=== PATIENT | female | born 1990 | race American Indian/Alaskan Native ===

== ENCOUNTER 2017-01-27 23:43 | Observation (INO) | payer OTHER ==
[2017-01-27 23:53] VITALS: BMI 21.7
[2017-01-28] MEDS ORDERED: Sodium Chloride 0.9% 1,000 ML IV STA ×2 (00:19→04:32)
--- NOTE | 2017-01-28 00:20 | ED PDOC ---
"Arrival/HPI - General Chief Complaint: Abdominal Pain Time Seen by Provider: 01/27/17 23:59 Historian: Patient - History of Present Illness Narrative History of Present Illness (Text): 01/28/17 00:11 Latasha Monet is a 26 year old female, with no significant past medical history, presents to the emergency department complaining of abdominal pain with increased vaginal bleeding for past 2 days. Patient states that her menstrual cycle was supposed to end 2 days ago, but states she suddenly started bleeding heavily. Reports quality of pain as pressure sensation across lower abdomen. States she passed large clots and developed lightheadedness and dizziness yesterday. Today, prior to arrival, patient felt weak and passed out in the shower. Also reports of a subjective fever, chills and lower abdominal pain while urinating. Denies any nausea, vomiting, diarrhea, flank pain, back pain, or any other complaints at this time. Time/Duration: Other (2 days ) Symptom Onset: Gradual Symptom Course: Unchanged Severity Level: Mild Activities at Onset: Light Past Medical History - Cardiac Hx Cardiac Disorders: No - Pulmonary Hx Respiratory Disorders: No - Neurological Hx Neurological Disorder: No - HEENT Hx HEENT Disorder: No - Renal Hx Renal Disorder: No - Endocrine/Metabolic Hx Endocrine Disorders: No - Hematological/Oncological Hx Blood Disorders: No - Integumentary Hx Dermatological Disorder: No - Musculoskeletal/Rheumatological Hx Musculoskeletal Disorders: No - Gastrointestinal Hx Gastrointestinal Disorders: No - Genitourinary/Gynecological Hx Genitourinary Disorders: No - Psychiatric Hx Psychophysiologic Disorder: No Hx Substance Use: No - Anesthesia Hx Anesthesia: No Hx Anesthesia Reactions: No Family/Social History Family/Social History: Other (nc) Smoking Status: Current Some Days Smoker Hx Alcohol Use: Yes Frequency of alcohol use: Socially Hx Substance Use: No Allergies/Home Meds Allergies/Adverse Reactions: Allergies No Known Allergies Allergy (Verified 01/28/17 15:22) Home Medications: Home Meds Medication Instructions Recorded Confirmed Ferrous Sulfate [Feosol] 325 mg PO DAILY 01/28/17 01/28/17 Review of Systems - Physician Review All systems were reviewed & negative as marked: Yes - Review of Systems Constitutional: Fevers Respiratory: Normal. absent: SOB, Cough Cardiovascular: Normal. absent: Chest Pain Gastrointestinal: Abdominal Pain. absent: Diarrhea, Nausea, Vomiting Genitourinary Female: Vaginal Bleeding. absent: Vaginal Discharge Neurological: Normal. absent: Headache, Dizziness Psychiatric: Normal Physical Exam Vital Signs Reviewed: Yes Vital Signs Temp Pulse Resp BP Pulse Ox 01/28/17 08:16 88 16 100/72 98 01/28/17 07:54 88 16 99/64 L 100 01/28/17 04:43 85 18 83/51 L 97 01/28/17 02:20 99.3 F 95 H 16 98 01/28/17 00:27 100.1 F H 97 H 17 102/61 100 Temperature: Afebrile Blood Pressure: Normal Pulse: Tachycardic Respiratory Rate: Normal Appearance: Positive for: Well-Appearing, Non-Toxic, Comfortable Pain Distress: None Mental Status: Positive for: Alert and Oriented X 3 - Systems Exam Head: Present: Atraumatic, Normocephalic Pupils: Present: PERRL Conjunctiva: Present: Normal Respiratory/Chest: Present: Clear to Auscultation, Good Air Exchange. No: Respiratory Distress, Accessory Muscle Use Cardiovascular: Present: Regular Rate and Rhythm, Normal S1, S2. No: Murmurs Abdomen: Present: Normal Bowel Sounds. No: Tenderness, Distention, Peritoneal Signs Genitourinary/Pelvic Exam: Present: Vaginal Bleeding, Other (minimal amount of blood in the vaginal vault which was easily cleaned by a 2X2 gauze. Mover Helper HELEN Mederos ). No: Vaginal Discharge Neurological: Present: GCS=15, CN II-XII Intact, Speech Normal Skin: Present: Warm, Dry, Normal Color. No: Rashes Psychiatric: Present: Alert, Oriented x 3, Normal Insight, Normal Concentration Medical Decision Making ED Course and Treatment: Progress Notes: 01/28/17 05:06 Transvaginal US reviewed: IMPRESSION: Blood products within the endometrial canal. Uterine fibroid. Complex free fluid right lower quadrant. 01/28/17 06:24 EXAM: CT Abdomen and Pelvis With Intravenous Contrast CLINICAL HISTORY: 26 years old, female; Pain; Abdominal pain; Generalized TECHNIQUE: Axial computed tomography images of the abdomen and pelvis with intravenous contrast. This CT exam was performed using one or more of the following dose reduction techniques : automated exposure control, adjustment of the mA and/or kV according to patient size, and/ or use of iterative reconstruction technique. Coronal and sagittal reformatted images were created and reviewed. CONTRAST: 96 mL of OMNI 350 administered intravenously. EXAM DATE/TIME: 01/28/2017 4:46 AM COMPARISON: US - TRANSVAGINAL 01/28/2017 3:51:19 AM FINDINGS: The liver is normal. The spleen is normal. The pancreas is normal. No gallstones. No hydronephrosis or perinephric stranding. LATASHA MONET | Preliminary Radiology Report PLASTIC SEWER (QA) DISCREPANCY? If there is a discrepancy between the preliminary and final interpretation, please notify [facility] via [email or web address] If you do not have access to our QA portal, call our QA team at [phone] CONFIDENTIALITY STATEMENT This report is intended only for the use of the referring physician, and only in accordance with law, If you received this in error, call [phone] Page 2 of 2 Moderate amount of stool within the rectum. A normal appendix is identified coronal images 31 through 41. There is a small amount of fluid along the inferior hepatic edge and inferior splenic edge. There is fluid density in the anterior pelvis bilaterally, greater on the right , images 127-137. Some of the fluid on the right appears to be contained within tubular structures which likely represents fluidfilled bowel as I believe I can connect it to bowel in the pelvis more superiorly. The lack of oral contrast prevents opacification of the lumen/ definitive identification of bowel. It would be an unusual configuration for abscess collection. Tubo-ovarian abscess could have a similar appearance however there is no stranding in the surrounding fat to suggest active inflammatory process. There is a very large heterogeneous uterine fibroid measuring approximately 8.6 x 9.6 cm in axial dimensions measuring approximately 7.5 cm in craniocaudal dimensions. The fibroid occupies essentially the entire uterine fundus extending inferiorly to abut the endometrial cavity. Fluid is present in the endometrial cavity. IMPRESSION: Very large uterine fibroid corresponding to that seen on ultrasound. Free fluid in the abdomen and pelvis as discussed above of uncertain etiology. PID would be included in the differential diagnosis. Clinical correlation recommended. Normal appendix identified. - Lab Interpretations Lab Results: 01/28/17 00:54 01/28/17 00:54 Lab Results 01/28/17 00:54: WBC 8.9, RBC 3.96, Hgb 11.2 L, Hct 34.3 L, MCV 86.6, MCH 28.3, MCHC 32.7, RDW 13.7, Plt Count 281, MPV 9.5, Gran % 84.3 H, Lymph % (Auto) 10.9 L, Barrow % (Auto) 4.5, Eos % (Auto) 0.2 L, Baso % (Auto) 0.1, Gran # 7.52 H, Lymph # 1.0 L, Barrow # 0.4, Eos # 0.0, Baso # 0.01, Sodium 135, Potassium 3.7, Chloride 101, Carbon Dioxide 27, Anion Gap 11, BUN 7, Creatinine 0.7, Est GFR ( Amer) > 60, Est GFR (Non-Af Amer) > 60, Random Glucose 100, Calcium 8.7 , Total Bilirubin 0.5, AST 33, ALT 33, Alkaline Phosphatase 54, Total Protein 7.1, Albumin 3.6, Globulin 3.5, Albumin/Globulin Ratio 1.0 L, Beta HCG, Quant < 2.39 01/28/17 00:15: Urine Color Yellow, Urine Appearance Slight-cloudy, Urine pH 7.5 , Ur Specific Chester 1.020, Urine Protein 30 H, Urine Glucose (UA) Negative, Urine Ketones Negative, Urine Blood Moderate H, Urine Nitrate Negative, Urine Bilirubin Negative, Urine Urobilinogen 0.2, Ur Leukocyte Esterase Negative, Urine RBC 2 - 5, Urine WBC 0 - 2, Ur Epithelial Cells 0 - 2, Urine Bacteria Rare , Urine HCG, Qual Negative I have reviewed the lab results: Yes - RAD Interpretation Narrative RAD Interpretations (Text): EXAM: US Pelvis, Transvaginal FINDINGS: The patient has a reported negative test. The uterus measures 14 x 9 x 9 cm. There is a 7cm fibroid in the lower uterine segment. The endometrium is heterogeneous and thickened measuring 27 mm. The thickened heterogeneous endometrium appears avascular suggesting it represents blood products. Both ovaries measure approximately 4 x 2 x 4 cm. The right ovary is normal. The left ovary is normal. Ovarian follicles are noted. Color flow and doppler vascular waveforms were demonstrated to both ovaries. There is free fluid in the right lower quadrant containing internal echoes suggesting it may represent blood or pus. No walled off collection identified. The appendix is not identified. IMPRESSION: Blood products within the endometrial canal. Uterine fibroid. Complex free fluid right lower quadrant. Radiology Orders: 01/28/17 02:02 TRANSVAGINAL [US] Stat 01/28/17 02:03 PELVIS ULTRASOUND [US] Routine 01/28/17 04:46 ABD & PELVIS IV CONTRAST ONLY [CT] Stat Line Walker: Radiologist - Medication Orders Current Medication Orders: Discontinued Medications Ferrous Sulfate (Feosol) 324 mg PO DAILY KALEY Last Admin: 01/29/17 09:09 Dose: 324 MG Sodium Chloride (Sodium Chloride 0.9%) 1,000 mls @ 999 mls/hr IV .Q1H1M STA Stop: 01/28/17 01:19 Last Admin: 01/28/17 00:57 Dose: 999 MLS/HR eMAR Start Stop Document 01/28/17 00:57 [email or web address] (Rec: 01/28/17 00:57 [email or web address] [id number]) Intravenous Solution Start Date 01/28/17 Start Time 00:57 End Date 01/28/17 Sodium Chloride (Sodium Chloride 0.9%) 1,000 mls @ 999 mls/hr IV .Q1H1M STA Stop: 01/28/17 05:32 Last Admin: 01/28/17 04:43 Dose: 999 MLS/HR eMAR Start Stop Document 01/28/17 04:43 MR (Rec: 01/28/17 04:44 MR [id number]) Intravenous Solution Start Date 01/28/17 Start Time 04:44 End Date 01/28/17 End time 05:44 Total Infusion Time 60 Ceftriaxone Sodium (Rocephin 1 Gram Ivpb) 100 mls @ 200 mls/hr IVPB STAT STA PRN Reason: Protocol Stop: 01/28/17 06:53 Last Admin: 01/28/17 06:49 Dose: 200 MLS/HR eMAR Start Stop Document 01/28/17 06:49 MR (Rec: 01/28/17 06:49 MR [id number]) Intravenous Solution Start Date 01/28/17 Start Time 06:49 End Date 01/28/17 End time 07:19 Total Infusion Time 30 Doxycycline Hyclate 100 mg/ (Sodium Chloride) 100 mls @ 100 mls/hr IVPB STAT STA PRN Reason: Protocol Stop: 01/28/17 07:27 Last Admin: 01/28/17 07:45 Dose: 100 MLS/HR eMAR Start Stop Document 01/28/17 07:45 HI (Rec: 01/28/17 07:47 HI [id number]) Intravenous Solution Start Date 01/28/17 Start Time 07:45 Metronidazole (Flagyl) 100 mls @ 100 mls/hr IVPB STAT STA PRN Reason: Protocol Stop: 01/28/17 07:27 Last Admin: 01/28/17 09:56 Dose: 100 MLS/HR eMAR Start Stop Document 01/28/17 09:56 JIGAR (Rec: 01/28/17 09:56 JIGAR [id number]) Intravenous Solution Start Date 01/28/17 Start Time 09:56 End Date 01/28/17 End time 10:56 Total Infusion Time 60 Iohexol (Omnipaque 350 100 Ml) Confirm Administered Dose 350 mg .ROUTE .STK-MED ONE Stop: 01/28/17 04:51 Ketorolac Tromethamine (Toradol) 10 mg IVP STAT STA Stop: 01/28/17 00:20 Last Admin: 01/28/17 01:06 Dose: 10 MG IVP Administration Document 01/28/17 01:06 [email or web address] (Rec: 01/28/17 01:[id number]) Charges for Administration # of IVP Administrations 1 Ketorolac Tromethamine (Toradol) 15 mg IM Q6 PRN PRN Reason: Pain, severe (8-10) Stop: 02/02/17 16:23 Morphine Sulfate (Morphine) 2 mg IVP STAT STA Stop: 01/28/17 02:05 Last Admin: 01/28/17 02:19 Dose: 2 MG MAR Pain Assessment Document 01/28/17 02:19 [email or web address] (Rec: 01/28/17 02:20 [email or web address] Pain Reassessment Is this a pain reassessment? No Sleep Is patient sleeping during reassessment? No Presence of Pain Presence of Pain Yes Pain Scale Used Pain Scale Used Numeric Location Upper or Lower Lower Pain Location Body Site Abdomen Description Description Constant Intensity of Pain at present 7 Pain Behavior Facial Grimacing Aggravating Factors Changing Position Alleviating Factors/Management Position Change Techniques Alleviating Factors Medication IVP Administration Document 01/28/17 02:19 [email or web address] (Rec: 01/28/17 02:[id number]) Charges for Administration # of IVP Administrations 1 Pantoprazole Sodium (Protonix Ec Tab) 40 mg PO DAILY KALEY Last Admin: 01/29/17 09:09 Dose: 40 MG Pneumococcal Polyvalent Vaccine (Pneumovax 23 Vaccine) 0.5 ml IM .ONCE ONE Stop: 01/28/17 18:39 - Scribe Statement The provider has reviewed the documentation as recorded by the Dio Christiansen Provider Attestation: All medical record entries made by the Dio were at my direction and personally dictated by me. I have reviewed the chart and agree that the record accurately reflects my personal performance of the history, physical exam, medical decision making, and the department course for this patient. I have also personally directed, reviewed, and agree with the discharge instructions and disposition. Disposition/Present on Arrival - Present on Arrival Any Indicators Present on Arrival: No History of DVT/PE: No History of Uncontrolled Diabetes: No Urinary Catheter: No History of Decub. Ulcer: No History Surgical Site Infection Following: None - Disposition Have Diagnosis and Disposition been Completed?: Yes Diagnosis: Syncope, Abnormal vaginal bleeding, Fever, Abdominal pain Disposition: HOSPITALIZED Disposition Time: 07:00 Condition: STABLE"
[2017-01-28 00:35] LABS: PH,URINE 7.5 (4.7-8.0); URINE BILIRUBIN NEGATIVE (NEGATIVE); URINE BLOOD MODERATE (NEGATIVE); URINE GLUCOSE (UA) NEGATIVE (NEGATIVE); URINE KETONE NEGATIVE (NEGATIVE); URINE LEUKOCYTE ESTERASE NEGATIVE Leu/uL (NEGATIVE); URINE PROTEIN 30 mg/dL (<30 mg/dL); URINE UROBILINOGEN 0.2 E.U./dL (<1 E.U./dL)
[2017-01-28 00:39] LABS: URINE APPEARANCE SLIGHT-CLOUDY (CLEAR); URINE COLOR YELLOW (YELLOW)
[2017-01-28 00:56] LABS: URINE BACTERIA RARE (NEG); URINE EPITHELIAL CELLS 0 - 2 /hpf (0-5); URINE WBC 0 - 2 /hpf (0-6)
[2017-01-28 01:02] LABS: ADD MANUAL DIFF? NO
[2017-01-28 01:04] LABS: BASO # 0.01 K/mm3 (0.0-2.0); BASO % 0.1 % (0.0-3.0); EOS % 0.2 % (1.5-5.0); GRAN # 7.52 (1.4-6.5); GRAN % 84.3 % (50.0-68.0); HEMATOCRIT 34.3 % (36.0-48.0); LYMPH % 10.9 % (22.0-35.0); MEAN CELL VOLUME 86.6 fL (80.0-105.0); MEAN CORPUSCULAR HEMOGLOBIN 28.3 pg (25.0-35.0); MEAN CORPUSCULAR HGB CONC 32.7 g/dl (31.0-37.0); MEAN PLATELET VOLUME 9.5 fl (7.0-11.0); MONO # 0.4 (0.1-0.6); MONO % 4.5 % (1.0-6.0); PLATELET COUNT 281 10^3/uL (120.0-450.0); RED CELL DISTRIBUTION WIDTH 13.7 % (11.5-14.5); WHITE BLOOD COUNT 8.9 10^3/ul (4.5-11.0)
[2017-01-28 01:37] LABS: ALKALINE PHOSPHATASE 54 U/L (38-133); ALT/SGPT 33 U/L (7-56); AST/SGOT 33 U/L (15-39); BILIRUBIN,TOTAL 0.5 mg/dL (0.2-1.3); BLOOD UREA NITROGEN 7 mg/dL (7-21); CALCIUM 8.7 mg/dL (8.4-10.5); CARBON DIOXIDE 27 mmol/L (21-33); CHLORIDE 101 mmol/L (98-107); GFR AFRICAN-AMERICAN > 60; GLUCOSE,RANDOM 100 mg/dL (70-110); POTASSIUM 3.7 mmol/L (3.6-5.0); SODIUM 135 mmol/L (132-148); TOTAL PROTEIN 7.1 g/dL (5.8-8.3)
[2017-01-28] MEDS ORDERED: Morphine 2 mg/ml ISec IVP STA (02:04)
--- NOTE | 2017-01-28 04:41 | US ---
EXAM: US Pelvis, Transvaginal CLINICAL HISTORY: 26 years old, female; Pain; Pelvic pain; Patient HX: Pelvic pain/fever/heavy bleeding with clots. Lmp 1 week ago; Additional info: Abd pain fever R/O toa TECHNIQUE: Real-time transvaginal pelvic ultrasound (complete) with image documentation. Transvaginal imaging was used for better evaluation of the endometrium and adnexa. EXAM DATE/TIME: 01/28/2017 2:02 AM COMPARISON: No relevant prior studies available. FINDINGS: The patient has a reported negative test. The uterus measures 14 x 9 x 9 cm. There is a 7cm fibroid in the lower uterine segment. The endometrium is heterogeneous and thickened measuring 27 mm. The thickened heterogeneous endometrium appears avascular suggesting it represents blood products. Both ovaries measure approximately 4 x 2 x 4 cm. The right ovary is normal. The left ovary is normal. Ovarian follicles are noted. Color flow and doppler vascular waveforms were demonstrated to both ovaries. There is free fluid in the right lower quadrant containing internal echoes suggesting it may represent blood or pus. No walled off collection identified. The appendix is not identified. IMPRESSION: Blood products within the endometrial canal. Uterine fibroid. Complex free fluid right lower quadrant.
--- NOTE | 2017-01-28 04:43 | US ---
EXAM: US Pelvis, Transvaginal CLINICAL HISTORY: 26 years old, female; Pain; Pelvic pain; Patient HX: Heavy bleeding with clots lmp 1 week ago; Additional info: Appendix only TECHNIQUE: Real-time transvaginal pelvic ultrasound (complete) with image documentation. Transvaginal imaging was used for better evaluation of the endometrium and adnexa. EXAM DATE/TIME: 01/28/2017 2:03 AM COMPARISON: No relevant prior studies available. FINDINGS: The patient has a reported negative test. The uterus measures 14 x 9 x 9 cm. There is a 7cm intramural fibroid in the lower uterine segment. The endometrium is heterogeneous and thickened measuring 27 mm. The thickened heterogeneous endometrium appears avascular suggesting it represents blood products. Both ovaries measure approximately 4 x 2 x 4 cm. The right ovary is normal. The left ovary is normal. Ovarian follicles are noted. Color flow and doppler vascular waveforms were demonstrated to both ovaries. There is free fluid in the right lower quadrant containing internal echoes suggesting it may represent blood or pus. No walled off collection identified. The appendix is not identified. IMPRESSION: Blood products within the endometrial canal. Uterine fibroid. Complex free fluid right lower quadrant.
[2017-01-28] MEDS ORDERED: Iohexol 350 MG/100 ML VIAL ONE (04:50)
[2017-01-28] MEDS ORDERED: cefTRIAXone 1 gm 100 ML IVPB STA (06:24)
[2017-01-28] MEDS ORDERED: metroNIDAZOLE IV 500 mg/100 ml 100 ML IVPB STA (06:28)
--- NOTE | 2017-01-28 08:19 | CT ---
PROCEDURE: CT Abdomen and Pelvis with contrast HISTORY: abdominal pain COMPARISON: Pelvic ultrasound performed 01/28/17 TECHNIQUE: Contrast dose: 100 mL Omnipaque 350 Radiation dose: Total exam DLP = 329.86 mGy-cm. This CT exam was performed using one or more of the following dose reduction techniques: Automated exposure control, adjustment of the mA and/or kV according to patient size, and/or use of iterative reconstruction technique. FINDINGS: LOWER THORAX: No visible consolidation, pleural effusion, or pneumothorax. Punctate right lower lobe calcified granuloma. LIVER: Unremarkable. GALLBLADDER AND BILE DUCTS: Unremarkable. PANCREAS: Unremarkable. SPLEEN: Unremarkable. ADRENALS: Unremarkable. KIDNEYS AND URETERS: The kidneys enhance symmetrically. No evidence of hydronephrosis or obstructing calculus. VASCULATURE: No aortic aneurysm. BOWEL: Small hiatal hernia/ distal esophageal wall thickening. The stomach is nondistended. Lack of oral contrast limits evaluation for bowel pathology. Bowel loops appear within normal limits of caliber without evidence of obstruction. Mild constipation. APPENDIX: The appendix appears within normal limits of caliber. No secondary signs of acute appendicitis. PERITONEUM: Fluid is noted along the inferior hepatic edge as well as the inferior splenic edge. Small pelvic free fluid. No definite free air. LYMPH NODES: Prominent but sub cm mesenteric and bilateral inguinal lymph nodes, nonspecific. BLADDER: Unremarkable. REPRODUCTIVE: Enlarged heterogeneous fibroid uterus. Fluid within the endometrial cavity. Tubular fluid-filled structures, possibly bowel noted within the pelvis ; abscess or tubo-ovarian abscess cannot be excluded. BONES: No acute osseous abnormality is detected. OTHER FINDINGS: None. IMPRESSION: Enlarged heterogeneous fibroid uterus. Fluid within the endometrial cavity. Tubular fluid-filled structures, possibly bowel noted within the pelvis ; abscess or tubo-ovarian abscess/PID cannot be excluded. Small abdominal ascites. Small pelvic free fluid. Preliminary impression was provided by virtual radiologic.
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
[2017-01-28] MEDS ORDERED: Pneumococcal 23-Valent Vaccine IM ONE (18:38)
[2017-01-29 07:49] LABS: ADD MANUAL DIFF? NO
[2017-01-29 07:53] LABS: BASO # 0.02 K/mm3 (0.0-2.0); BASO % 0.4 % (0.0-3.0); EOS # 0.1 (0.0-0.7); EOS % 1.3 % (1.5-5.0); GRAN # 2.46 (1.4-6.5); GRAN % 54.9 % (50.0-68.0); HEMATOCRIT 30.8 % (36.0-48.0); LYMPH # 1.3 (1.2-3.4); LYMPH % 29.4 % (22.0-35.0); MEAN CELL VOLUME 87.3 fL (80.0-105.0); MEAN CORPUSCULAR HEMOGLOBIN 28.3 pg (25.0-35.0); MEAN CORPUSCULAR HGB CONC 32.5 g/dl (31.0-37.0); MEAN PLATELET VOLUME 9.5 fl (7.0-11.0); MONO # 0.6 (0.1-0.6); PLATELET COUNT 251 10^3/uL (120.0-450.0); RED CELL DISTRIBUTION WIDTH 14.1 % (11.5-14.5); WHITE BLOOD COUNT 4.5 10^3/ul (4.5-11.0)
[2017-01-29 08:02] LABS: ALKALINE PHOSPHATASE 46 U/L (38-133); ALT/SGPT 37 U/L (7-56); AST/SGOT 26 U/L (15-39); BILIRUBIN,TOTAL 0.4 mg/dL (0.2-1.3); BLOOD UREA NITROGEN 7 mg/dL (7-21); CALCIUM 8.5 mg/dL (8.4-10.5); CARBON DIOXIDE 25 mmol/L (21-33); CHLORIDE 106 mmol/L (98-107); GFR AFRICAN-AMERICAN > 60; GLUCOSE,RANDOM 80 mg/dL (70-110); POTASSIUM 3.6 mmol/L (3.6-5.0); SODIUM 139 mmol/L (132-148); TOTAL PROTEIN 6.8 g/dL (5.8-8.3)
[2017-01-29] MEDS ORDERED: Pantoprazole 40 mg EC Tab PO SCH (10:00)
[2017-01-29 10:39] VITALS: BP 106/62; PULSE 87; RESP 20; TEMP 98.6; O2SAT 100
--- NOTE | 2017-01-29 13:14 | CP.PCM.DIS ---
<Zara Calvillo - Last Filed: 01/31/17 13:57> Provider - Provider Date of Admission: 01/28/17 07:10 Attending physician: Stef Olson MD Time Spent in preparation of Discharge (in minutes): 40 Hospital Course - Lab Results Lab Results: Most Recent Lab Values WBC 4.5 10^3/ul (4.5-11.0) D 01/29/17 07:48 RBC 3.53 10^6/uL (3.5-6.1) 01/29/17 07:48 Hgb 10.0 gm/dL (12.0-16.0) L 01/29/17 07:48 Hct 30.8 % (36.0-48.0) L 01/29/17 07:48 MCV 87.3 fL (80.0-105.0) 01/29/17 07:48 MCH 28.3 pg (25.0-35.0) 01/29/17 07:48 MCHC 32.5 g/dl (31.0-37.0) 01/29/17 07:48 RDW 14.1 % (11.5-14.5) 01/29/17 07:48 Plt Count 251 10^3/uL (120.0-450.0) 01/29/17 07:48 MPV 9.5 fl (7.0-11.0) 01/29/17 07:48 Gran % 54.9 % (50.0-68.0) 01/29/17 07:48 Lymph % (Auto) 29.4 % (22.0-35.0) 01/29/17 07:48 [place] % (Auto) 14.0 % (1.0-6.0) H 01/29/17 07:48 Eos % (Auto) 1.3 % (1.5-5.0) L 01/29/17 07:48 Baso % (Auto) 0.4 % (0.0-3.0) 01/29/17 07:48 Gran # 2.46 (1.4-6.5) 01/29/17 07:48 Lymph # 1.3 (1.2-3.4) 01/29/17 07:48 [place] # 0.6 (0.1-0.6) 01/29/17 07:48 Eos # 0.1 (0.0-0.7) 01/29/17 07:48 Baso # 0.02 K/mm3 (0.0-2.0) 01/29/17 07:48 Sodium 139 mmol/L (132-148) 01/29/17 07:48 Potassium 3.6 mmol/L (3.6-5.0) 01/29/17 07:48 Chloride 106 mmol/L (98-107) 01/29/17 07:48 Carbon Dioxide 25 mmol/L (21-33) 01/29/17 07:48 Anion Gap 12 (10-20) 01/29/17 07:48 BUN 7 mg/dL (7-21) 01/29/17 07:48 Creatinine 0.5 mg/dL (0.5-1.4) 01/29/17 07:48 Est GFR ( Amer) > 60 01/29/17 07:48 Est GFR (Non-Af Amer) > 60 01/29/17 07:48 Random Glucose 80 mg/dL (70-110) 01/29/17 07:48 Calcium 8.5 mg/dL (8.4-10.5) 01/29/17 07:48 Total Bilirubin 0.4 mg/dL (0.2-1.3) 01/29/17 07:48 AST 26 U/L (15-39) 01/29/17 07:48 ALT 37 U/L (7-56) 01/29/17 07:48 Alkaline Phosphatase 46 U/L (38-133) 01/29/17 07:48 Total Protein 6.8 g/dL (5.8-8.3) 01/29/17 07:48 Albumin 3.4 g/dL (3.0-4.8) 01/29/17 07:48 Globulin 3.4 gm/dL 01/29/17 07:48 Albumin/Globulin Ratio 1.0 (1.1-1.8) L 01/29/17 07:48 Beta HCG, Quant < 2.39 mIU/mL (0-6.15) 01/28/17 00:54 Urine Color Yellow (YELLOW) 01/28/17 00:15 Urine Appearance Slight-cloudy (CLEAR) 01/28/17 00:15 Urine pH 7.5 (4.7-8.0) 01/28/17 00:15 Ur Specific [place] 1.020 (1.005-1.035) 01/28/17 00:15 Urine Protein 30 mg/dL (<30 mg/dL) H 01/28/17 00:15 Urine Glucose (UA) Negative mg/dL (NEGATIVE) 01/28/17 00:15 Urine Ketones Negative mg/dL (NEGATIVE) 01/28/17 00:15 Urine Blood Moderate (NEGATIVE) H 01/28/17 00:15 Urine Nitrate Negative (NEGATIVE) 01/28/17 00:15 Urine Bilirubin Negative (NEGATIVE) 01/28/17 00:15 Urine Urobilinogen 0.2 E.U./dL (<1 E.U./dL) 01/28/17 00:15 Ur Leukocyte Esterase Negative Shital/uL (NEGATIVE) 01/28/17 00:15 Urine RBC 2 - 5 /hpf (0-2) 01/28/17 00:15 Urine WBC 0 - 2 /hpf (0-6) 01/28/17 00:15 Ur Epithelial Cells 0 - 2 /hpf (0-5) 01/28/17 00:15 Urine Bacteria Rare (NEG) 01/28/17 00:15 Urine HCG, Qual Negative (NEGATIVE) 01/28/17 00:15 - Hospital Course Hospital Course: 26 yo female with no significant PMH presents with heavy vaginal bleeding and syncopal episode. CT abd/pel showed enlarged heterogeneous fibroid uterus, tubular fluid- filled structure, poss bowel or tubo-ovarian abscess/PID. Pelvis US showed blood products within endometrial canal, uterine fibroid, complex free fluid RLQ. Transvaginal US showed blood products within endometrial canal, uterine fibroid, complex free fluid RLQ. Beta HCG was negative. Chlamydia/GC was ordered results are pending. UA shows moderate blood and protein, no bacteria or leukocytes. Orthostatic vitals within normal limits. Carotid US official read is pending. Patient was given doxycycline, ceftriaxone and metronidazole in ED as well as 2 liters NS. Patient is feeling better, vaginal bleeding has slowed down, she states that she is only spotting. Discharge instructions are to follow up with PMD in 3-5 days, and follow up with OBGYDR Paul Ramos in 1 week. No new medications, continue iron supplements. Discharge diagnoses: syncope, fever, abnormal vaginal bleeding, uterine fibroid. Patient is aware of hospital course and diagnoses. Discharge plan was discussed with patient in detail, she is in agreement. Discharge Exam - Head Exam Head Exam: ATRAUMATIC, NORMOCEPHALIC - Eye Exam Eye Exam: Normal appearance - Respiratory Exam Respiratory Exam: Clear to PA & Lateral, NORMAL BREATHING PATTERN, UNREMARKABLE. absent: Decreased Breath Sounds, Rales, Rhonchi, Wheezes, Respiratory Distress - Cardiovascular Exam Cardiovascular Exam: REGULAR RHYTHM. absent: Tachycardia, Systolic Murmur - GI/Abdominal Exam GI & Abdominal Exam: Normal Bowel Sounds, Soft. absent: Distended, Firm, Guarding, Tenderness - Extremities Exam Extremities exam: normal inspection - Neurological Exam Neurological exam: Alert, Oriented x3 - Skin Skin Exam: Dry, Intact, Normal Color, Warm Discharge Plan - Follow Up Plan Condition: STABLE Disposition: HOME/ ROUTINE Instructions: Uterine Fibroids (DC) Additional Instructions: Discharge instructions: - Follow up with PMD, Dr. Olson in 3-5 days - follow up with OBGYN, DR Miller in 1 week - if new symptoms occur return to nearest Emergency department. No new medications, continue iron supplements Discharge diagnoses: syncope, fever, abnormal vaginal bleeding, uterine fibroid Referrals: Stef Olson MD [Staff Provider] - Selvin Miller MD [Staff Provider] - <Hi Stokes - Last Filed: 02/25/17 09:31> Provider - Provider Date of Admission: 01/28/17 07:10 Attending physician: Stef Olson MD Hospital Course - Lab Results Lab Results: Micro Results 01/28/17 18:50 Blood Blood Culture - Final NO GROWTH AFTER 5 DAYS 01/28/17 18:50 Blood Gram Stain - Final TEST NOT PERFORMED 01/28/17 18:30 Blood Blood Culture - Final NO GROWTH AFTER 5 DAYS 01/28/17 18:30 Blood Gram Stain - Final TEST NOT PERFORMED Most Recent Lab Values WBC 4.5 10^3/ul (4.5-11.0) D 01/29/17 07:48 RBC 3.53 10^6/uL (3.5-6.1) 01/29/17 07:48 Hgb 10.0 gm/dL (12.0-16.0) L 01/29/17 07:48 Hct 30.8 % (36.0-48.0) L 01/29/17 07:48 MCV 87.3 fL (80.0-105.0) 01/29/17 07:48 MCH 28.3 pg (25.0-35.0) 01/29/17 07:48 MCHC 32.5 g/dl (31.0-37.0) 01/29/17 07:48 RDW 14.1 % (11.5-14.5) 01/29/17 07:48 Plt Count 251 10^3/uL (120.0-450.0) 01/29/17 07:48 MPV 9.5 fl (7.0-11.0) 01/29/17 07:48 Gran % 54.9 % (50.0-68.0) 01/29/17 07:48 Lymph % (Auto) 29.4 % (22.0-35.0) 01/29/17 07:48 [place] % (Auto) 14.0 % (1.0-6.0) H 01/29/17 07:48 Eos % (Auto) 1.3 % (1.5-5.0) L 01/29/17 07:48 Baso % (Auto) 0.4 % (0.0-3.0) 01/29/17 07:48 Gran # 2.46 (1.4-6.5) 01/29/17 07:48 Lymph # 1.3 (1.2-3.4) 01/29/17 07:48 [place] # 0.6 (0.1-0.6) 01/29/17 07:48 Eos # 0.1 (0.0-0.7) 01/29/17 07:48 Baso # 0.02 K/mm3 (0.0-2.0) 01/29/17 07:48 Sodium 139 mmol/L (132-148) 01/29/17 07:48 Potassium 3.6 mmol/L (3.6-5.0) 01/29/17 07:48 Chloride 106 mmol/L (98-107) 01/29/17 07:48 Carbon Dioxide 25 mmol/L (21-33) 01/29/17 07:48 Anion Gap 12 (10-20) 01/29/17 07:48 BUN 7 mg/dL (7-21) 01/29/17 07:48 Creatinine 0.5 mg/dL (0.5-1.4) 01/29/17 07:48 Est GFR ( Amer) > 60 01/29/17 07:48 Est GFR (Non-Af Amer) > 60 01/29/17 07:48 Random Glucose 80 mg/dL (70-110) 01/29/17 07:48 Calcium 8.5 mg/dL (8.4-10.5) 01/29/17 07:48 Total Bilirubin 0.4 mg/dL (0.2-1.3) 01/29/17 07:48 AST 26 U/L (15-39) 01/29/17 07:48 ALT 37 U/L (7-56) 01/29/17 07:48 Alkaline Phosphatase 46 U/L (38-133) 01/29/17 07:48 Total Protein 6.8 g/dL (5.8-8.3) 01/29/17 07:48 Albumin 3.4 g/dL (3.0-4.8) 01/29/17 07:48 Globulin 3.4 gm/dL 01/29/17 07:48 Albumin/Globulin Ratio 1.0 (1.1-1.8) L 01/29/17 07:48 Beta HCG, Quant < 2.39 mIU/mL (0-6.15) 01/28/17 00:54 Urine Color Yellow (YELLOW) 01/28/17 00:15 Urine Appearance Slight-cloudy (CLEAR) 01/28/17 00:15 Urine pH 7.5 (4.7-8.0) 01/28/17 00:15 Ur Specific [place] 1.020 (1.005-1.035) 01/28/17 00:15 Urine Protein 30 mg/dL (<30 mg/dL) H 01/28/17 00:15 Urine Glucose (UA) Negative mg/dL (NEGATIVE) 01/28/17 00:15 Urine Ketones Negative mg/dL (NEGATIVE) 01/28/17 00:15 Urine Blood Moderate (NEGATIVE) H 01/28/17 00:15 Urine Nitrate Negative (NEGATIVE) 01/28/17 00:15 Urine Bilirubin Negative (NEGATIVE) 01/28/17 00:15 Urine Urobilinogen 0.2 E.U./dL (<1 E.U./dL) 01/28/17 00:15 Ur Leukocyte Esterase Negative Shital/uL (NEGATIVE) 01/28/17 00:15 Urine RBC 2 - 5 /hpf (0-2) 01/28/17 00:15 Urine WBC 0 - 2 /hpf (0-6) 01/28/17 00:15 Ur Epithelial Cells 0 - 2 /hpf (0-5) 01/28/17 00:15 Urine Bacteria Rare (NEG) 01/28/17 00:15 Urine HCG, Qual Negative (NEGATIVE) 01/28/17 00:15 C.trachomatis RNA (TMA) Not detected (Not Detected) 01/28/17 00:15 N.gonorrhoeae RNA (TMA) Not detected (Not Detected) 01/28/17 00:15 Attending/Attestation - Attestation I have personally seen and examined this patient.: Yes I have fully participated in the care of the patient.: Yes I have reviewed all pertinent clinical information, including history, physical exam and plan: Yes Notes (Text): 02/25/17 09:31 Medical record note made by the resident after discussion with my direction and input after the patient was personally seen and examined by me. I have reviewed the chart and agree that the record accurately reflects by personal performance of the history, physical exam, data review, and medical decision-making, in the course for the patient. I have also personally directed the plan of care.
--- NOTE | 2017-01-30 14:34 | US ---
PROCEDURE: Bilateral carotid artery duplex ultrasound HISTORY: Carotid stenosis PHYSICIAN(S): Yannick Fraga MD. TECHNIQUE: Duplex sonography and color-flow Doppler were used to evaluate the carotid bifurcations and limited segments of the vertebral arteries bilaterally. FINDINGS: Minimal bilateral intimal- medial thickening is noted. . The peak systolic velocity in the proximal right internal carotid artery is 121 cm/sec. The ic/ cc ratio is not elevated. This is consistent with 0-19 percent proximal right ICA stenosis. Normal systolic velocities are noted in the proximal right external carotid artery. There is antegrade flow in the right vertebral artery. The peak systolic velocity in the proximal left internal carotid artery is 115 cm/sec. Once again, the ic/ cc ratio is not elevated. This corresponds to 0-19 percent proximal left ICA stenosis. Normal systolic velocities are noted in the proximal left external carotid artery. There is antegrade flow in the left vertebral artery. IMPRESSION: 1. Bilateral 0-19% proximal ICA stenoses. 2. Antegrade flow in both vertebral arteries.
== END 2017-01-29 14:00 | disposition home or self-care (01) ==
LOC: ED 23:43 → ERH 01-28 07:10 → 3RSO 01-28 08:29
PROVIDERS: ADMIT Internal Medicine; ATTEND Internal Medicine
DX: D25.9 Leiomyoma of uterus, unspecified (principal); N93.9 Abnormal uterine and vaginal bleeding, unspecified; F17.200 Nicotine dependence, unspecified, uncomplicated; R40.2412 Glasgow coma scale score 13-15, at arrival to emergency department; R55 Syncope and collapse; F12.90 Cannabis use, unspecified, uncomplicated; R50.9 Fever, unspecified
CPT/HCPCS: 36415; 74177; 76830; 76856; 80053; 81001; 84702; 84703; 85025; 87040; 87491; 87591; 93880; 96361; 96365; 96367; 96375; 99285; G0378; J0696; J1885; J2270; J7040; Q9967